=== PATIENT | male | born 1935 | race Caucasian/White ===

== ENCOUNTER 2016-12-07 10:42 | Emergency (ER) | payer OTHER ==
[~2016-12-07] VITALS: Ht 182.9 cm; Wt 113.6 kg
[~2016-12-07 10:42] MED LIST: 24HOUR ALLERGY10 MG PO; ACIDOPHILUS PO; ACIDOPHILUS1 EAC1 PO; ADULT LOW DOSE81 M1 PO; ALAVERT10 M1 PO; ALBUTEROL17 GM IH; ARIPIPRAZOLE20 MG PO; ARTIFICIAL TEAR15 M1 BOTH EYES; ASPIRIN81 M1 PO; ATROVENT 0.06%15 ML BOTH NARES; Aspirin E.C. PO; BACITRAYCIN PLU28 G1 TP; BACTRIM DS PO; BACTRIM,SEPT1 TABLET PO; CALCIUM 600 +1 EAC1 PO; CALCIUM 600 +1 EAC9 PO; CARRAKLENZ DER473 ML TP; CELEXA20 MG PO; CIPRO500 MG PO; CITALOPRAM HBR20 MG PO; CLONAZEPAM0.5 MG PO; COL-RITE100 M1 PO; COLACE100 MG PO; COMBIVENT200 INHALA IH; CRESTOR40 MG PO; Calcium 600 + Vit D PO; DIABETA,MICRONAS5 MG PO; DILANTIN100 MG PO; DIOVAN40 MG PO; DIOVAN80 MG PO; DUONEB 2.5-0.5 M3 ML AEROSOL; Ditropan PO; DuoNeb IH; FLOMAX0.4 MG PO; FLUNISOLIDE25 M2 NS; FUROSEMIDE20 MG PO; GAS-X80 MG PO; GLUCO BURST37.5 GM PO; GUAIFENESIN200 M1 PO; GUAIFENESIN200 M2 PO; HUMULIN N100 UNIT/1 SC; HUMULIN N300 UNIT/3 SC; IODOSORB TP; IODOSORB40 GM TP; IPRATROPIU0.2 MG/1 M IH; IPRATROPIUM BRO15 ML NS; ISOSORBIDE MONO30 MG PO; Kenalog 0.1% Cream TP; LANTUS 10100 UNITS/ SC; LASIX20 MG PO; LEVAQUIN500 MG PO; LIDOCAINE HCL20 ML MM; LIPITOR80 MG PO; LOPERAMIDE2 MG PO; LOPRESSOR25 MG PO; LOTRIMIN C1 APPLICAT TP; LOVASTATIN; LYRICA150 MG PO; LYRICA200 MG PO; LYRICA50 MG PO; Lasix PO; Lopressor PO; Lotrimin Cream TP; METOPROLOL TART50 MG PO; MIRALAX255 GM PO; Mylicon,Mylanta Gas, PO; NITROGLYCERIN0.4 MG SL; NITROSTAT0.4 MG SL; NOVOLOG 10100 UNITS/ SC; NOVOLOG PE100 UNITS/ SC; Nitrostat,NitroQuick SL; OXYBUTYNIN CHLOR5 MG PO; PERCOCET 5/31 TABLET PO; PLAVIX75 MG PO; PREDNISONE10 MG PO; PROAIR HFA8.5 GM IH; PROSCAR5 MG PO; PROTONIX40 MG PO; PROVENTIL,2.5 MG/3 M IH; PYRIDIUM100 MG PO; Plavix PO; Protonix PO; RESTASIS 01 DROP/0.4 BOTH EYES; SERTRALINE HCL100 MG PO; SYMBICORT60 INHALA1 IH; TYLENOL REGULA325 MG PO; VISTARIL25 MG PO; VITAMIN D31000 UNI1 PO; VITAMIN D31000 UNIT PO; Vitamin D PO; ZESTRIL,PRINIVI40 MG PO; [UNRECOGNIZED DRUG - CODE] IH; [UNRECOGNIZED DRUG - SUPPLY] TP; [UNRECOGNIZED DRUG - SUPPLY] TP; celeXA PO
[2016-12-07 11:56] LABS: HEMATOCRIT 39.7 % (38.0-50.0); MCH 23.9 PG (29.0-34.0); MCV 77.1 FL (86-99); MEAN PLAT.VOLUME 11.3 uM^3 (9.0-12.4); PLATELET COUNT 299 K/uL (156-360); RBC DIS.WIDTH-CV 17.7 % (11.8-14.6); RBC DIS.WIDTH-SD 48.3 % (39-53); RED BLOOD COUNT 5.15 M/uL (4.00-5.50); WHITE BLOOD COUNT 21.7 K/uL (4.1-10.2)
[2016-12-07 12:57] LABS: CHLORIDE 109 mEq/L (99-109); POTASSIUM 4.5 mEq/L (3.7-5.4); SODIUM 138 mEq/L (136-147)
[2016-12-07 12:59] LABS: GLUCOSE 178 mg/dL (70-99)
[2016-12-07 13:01] LABS: ANION GAP 8 MEQ/L (2-14); TOTAL BILIRUBIN 0.9 mg/dL (0.0-1.0)
[2016-12-07 13:03] LABS: ALKALINE PHOSPHATASE 68 IU/L (3-129); GFR ESTIMATE (CALCULATED) 48 mL/min/
[2016-12-07 13:04] LABS: UREA NITROGEN (BUN) 30 mg/dL (9-23)
[2016-12-07 16:26] LABS: INFLUENZA A VIRAL ANTIGEN NEGATIVE; INFLUENZA B VIRAL ANTIGEN NEGATIVE
[2016-12-07 16:50] LABS: ADD MIUA? NO; BILIRUBIN NEGATIVE; BLOOD NEGATIVE; COLOR YELLOW ((YELLOW)); GLUCOSE (STRIP) NEGATIVE; KETONES NEGATIVE; LEUKOCYTES NEGATIVE; NITRITE NEGATIVE; PROTEIN (STRIP) NEGATIVE; SPECIFIC GRAVITY 1.016 (1.000-1.030); UCUL ADDED? NO; UROBILINOGEN 0.2 MG/DL (0.2-1.0)
[2016-12-07] MEDS ORDERED: LEVAQUIN750 MG PO (16:57)
[2016-12-07 17:23] VITALS: BP 121/65
[2016-12-08] MEDS ORDERED: CHILDREN'S ASPI81 M1 PO (16:49)
[2016-12-08] MEDS ORDERED: ZOLOFT25 MG PO (16:50)
[2016-12-08] MEDS ORDERED: NOVOLOG 10100 UNITS/ SC (16:57)
[2016-12-08] MEDS ORDERED: CYMBALTA20 MG PO (16:59)
== END 2016-12-07 17:56 | disposition home or self-care (01) ==
LOC: EME 10:42
PROVIDERS: Emergency Medicine
DX: L08.9 Local infection of the skin and subcutaneous tissue, unspecified (principal); E11.8 Type 2 diabetes mellitus with unspecified complications; J44.9 Chronic obstructive pulmonary disease, unspecified; E78.5 Hyperlipidemia, unspecified; I10 Essential (primary) hypertension; I25.10 Atherosclerotic heart disease of native coronary artery without angina pectoris; I25.2 Old myocardial infarction; K21.9 Gastro-esophageal reflux disease without esophagitis; R56.9 Unspecified convulsions; Z86.73 Personal history of transient ischemic attack (TIA), and cerebral infarction without residual deficits; Z98.61 Coronary angioplasty status; Z87.891 Personal history of nicotine dependence
CPT/HCPCS: 71020; 71250; 74176; 80053; 81003; 83605; 85027; 87040; 87502; 99281; 99285; J7030

== ENCOUNTER 2016-12-08 12:30 | Observation (INO) | payer OTHER ==
[~2016-12-08] VITALS: Ht 182.9 cm; Wt 115.5 kg
[~2016-12-08 12:30] MED LIST changes: +LEVAQUIN750 MG PO
[2016-12-08 15:27] LABS: EOSINOPHIL (%) 1.8 % (0-5); EOSINOPHIL COUNT 0.1 K/uL (0-0.3); HEMATOCRIT 35.1 % (38.0-50.0); IMMATURE GRANULOCYTE (%) 0.5 % (0.0-0.7); INSTRUMENT ABS NEUTROPHIL CT 4.6 K/uL; MCH 23.6 PG (29.0-34.0); MCHC 30.2 G/DL (30.0-36.0); MCV 78.2 FL (86-99); MEAN PLAT.VOLUME 11.3 uM^3 (9.0-12.4); MONOCYTE (%) 14.8 % (3-12); MONOCYTE COUNT 1.2 K/uL (0-0.8); NEUTROPHIL (%) 57.4 % (45-76); NEUTROPHIL COUNT 4.6 K/uL (1.8-6.4); PLATELET COUNT 252 K/uL (156-360); RBC DIS.WIDTH-CV 17.7 % (11.8-14.6); RBC DIS.WIDTH-SD 49.9 % (39-53); RED BLOOD COUNT 4.49 M/uL (4.00-5.50)
[2016-12-08 15:33] LABS: CHLORIDE 110 mEq/L (99-109); POTASSIUM 4.2 mEq/L (3.7-5.4); SODIUM 140 mEq/L (136-147)
[2016-12-08 15:35] LABS: GLUCOSE 146 mg/dL (70-99)
[2016-12-08 15:36] LABS: ANION GAP 6 MEQ/L (2-14)
[2016-12-08 15:39] LABS: GFR ESTIMATE (CALCULATED) > 59 mL/min/
[2016-12-08 15:40] LABS: UREA NITROGEN (BUN) 23 mg/dL (9-23)
[2016-12-08] MEDS ORDERED: CHILDREN'S ASPI81 M1 PO (16:49)
[2016-12-08] MEDS ORDERED: ZOLOFT25 MG PO (16:50)
[2016-12-08] MEDS ORDERED: NOVOLOG 10100 UNITS/ SC (16:57)
[2016-12-08] MEDS ORDERED: CYMBALTA20 MG PO (16:59)
[2016-12-08 18:08] VITALS: BP 150/70
[2016-12-08 21:14] LABS: POINT-OF-CARE METER ID UU14188625
[2016-12-08 23:03] VITALS: BP 155/75
[2016-12-09 08:20] VITALS: BP 161/76
[2016-12-09 08:56] LABS: HEMATOCRIT 36.6 % (38.0-50.0); MCH 24.2 PG (29.0-34.0); MCHC 30.3 G/DL (30.0-36.0); MCV 79.9 FL (86-99); MEAN PLAT.VOLUME 12.7 uM^3 (9.0-12.4); PLATELET COUNT 197 K/uL (156-360); RBC DIS.WIDTH-CV 17.9 % (11.8-14.6); RBC DIS.WIDTH-SD 51.8 % (39-53); RED BLOOD COUNT 4.58 M/uL (4.00-5.50); WHITE BLOOD COUNT 8.1 K/uL (4.1-10.2)
[2016-12-09] MEDS ORDERED: LEVAQUIN500 MG PO (11:00)
== END 2016-12-09 14:03 | disposition home health service (06) ==
LOC: EME 12:30 → 5SOUTH 16:10 → EDOF 16:10 → 5SOUTH 16:10
PROVIDERS: Emergency Medicine; Internal Medicine
DX: L03.116 Cellulitis of left lower limb (principal); E11.40 Type 2 diabetes mellitus with diabetic neuropathy, unspecified; E11.21 Type 2 diabetes mellitus with diabetic nephropathy; E11.621 Type 2 diabetes mellitus with foot ulcer; L97.529 Non-pressure chronic ulcer of other part of left foot with unspecified severity; D50.9 Iron deficiency anemia, unspecified; K21.9 Gastro-esophageal reflux disease without esophagitis; I10 Essential (primary) hypertension; I25.10 Atherosclerotic heart disease of native coronary artery without angina pectoris; E78.5 Hyperlipidemia, unspecified; Z95.5 Presence of coronary angioplasty implant and graft; I25.2 Old myocardial infarction; G40.909 Epilepsy, unspecified, not intractable, without status epilepticus; N40.1 Benign prostatic hyperplasia with lower urinary tract symptoms; R33.9 Retention of urine, unspecified; F41.9 Anxiety disorder, unspecified; F32.9 Major depressive disorder, single episode, unspecified; Z85.46 Personal history of malignant neoplasm of prostate; Z86.73 Personal history of transient ischemic attack (TIA), and cerebral infarction without residual deficits; Z79.4 Long term (current) use of insulin
CPT/HCPCS: 80048; 82948; 85025; 85027; 87040; 87070; 87075; 87077; 87186; 87205; 93971; 94640; 94640 76; 99202; 99281; 99285; A6021; G0378; J1650; J1815; J1956; J3370

== ENCOUNTER 2017-01-11 13:00 | Observation (INO) | payer OTHER ==
[~2017-01-11] VITALS: Ht 182.9 cm; Wt 112.6 kg
[~2017-01-11 13:00] MED LIST changes: +CHILDREN'S ASPI81 M1 PO; +CYMBALTA20 MG PO; +ZOLOFT25 MG PO
[2017-01-11 14:39] LABS: MCH 23.7 PG (29.0-34.0); MCHC 30.5 G/DL (30.0-36.0); MCV 77.8 FL (86-99); MEAN PLAT.VOLUME 11.3 uM^3 (9.0-12.4); PLATELET COUNT 269 K/uL (156-360); RBC DIS.WIDTH-CV 16.8 % (11.8-14.6); RBC DIS.WIDTH-SD 47.3 % (39-53); RED BLOOD COUNT 5.14 M/uL (4.00-5.50); WHITE BLOOD COUNT 11.9 K/uL (4.1-10.2)
[2017-01-11 14:47] LABS: CHLORIDE 104 mEq/L (99-109); POTASSIUM 4.6 mEq/L (3.7-5.4); SODIUM 136 mEq/L (136-147)
[2017-01-11 14:49] LABS: GLUCOSE 64 mg/dL (70-99)
[2017-01-11 14:50] LABS: ANION GAP 8 MEQ/L (2-14)
[2017-01-11 14:53] LABS: GFR ESTIMATE (CALCULATED) 56 mL/min/; UREA NITROGEN (BUN) 21 mg/dL (9-23)
[2017-01-11 16:08] LABS: TROP-I INTERPRETATION NEGATIVE; TROPONIN-I < 0.01 ng/mL (0.0-0.30)
[2017-01-11 16:09] LABS: ADD MIUA? NO; BILIRUBIN NEGATIVE; BLOOD NEGATIVE; COLOR YELLOW ((YELLOW)); GLUCOSE (STRIP) NEGATIVE; KETONES NEGATIVE; LEUKOCYTES NEGATIVE; NITRITE NEGATIVE; PROTEIN (STRIP) NEGATIVE; SPECIFIC GRAVITY 1.012 (1.000-1.030); UCUL ADDED? NO; UROBILINOGEN 0.2 MG/DL (0.2-1.0)
[2017-01-11 18:07] VITALS: BP 168/92
[2017-01-11] MEDS ORDERED: ARIPIPRAZOLE20 MG PO (18:31)
[2017-01-11] MEDS ORDERED: ATORVASTATIN CA80 MG PO (18:32)
[2017-01-11] MEDS ORDERED: SYMBICORT60 INHALAT IH (18:32)
[2017-01-11] MEDS ORDERED: CYMBALTA60 MG PO (18:34)
[2017-01-11] MEDS ORDERED: RANEXA500 MG PO (18:38)
[2017-01-11] MEDS ORDERED: TRAMADOL HCL50 MG PO (18:38)
[2017-01-11] MEDS ORDERED: SIMETHICONE80 MG PO (18:38)
[2017-01-11] MEDS ORDERED: ALBUTEROL2.5 MG/3 M IH (18:39)
[2017-01-11 19:00] VITALS: BP 139/69
[2017-01-11 19:19] LABS: TROP-I INTERPRETATION NEGATIVE; TROPONIN-I 0.01 ng/mL (0.0-0.30)
[2017-01-11 23:09] LABS: POINT-OF-CARE METER ID UU13113831
[2017-01-12] VITALS: BP 152/68
[2017-01-12 00:47] LABS: METH RESISTANT S AUREUS PCR NEGATIVE (NEGATIVE)
[2017-01-12 00:54] LABS: PROBE CHECK PASS; SPECIMEN PROCESSING CONTROL PASS
[2017-01-12 04:25] VITALS: BP 139/82
[2017-01-12 06:29] LABS: HEMATOCRIT 36.5 % (38.0-50.0); MCH 24.3 PG (29.0-34.0); MCHC 31.2 G/DL (30.0-36.0); MCV 77.7 FL (86-99); MEAN PLAT.VOLUME 11.9 uM^3 (9.0-12.4); PLATELET COUNT 253 K/uL (156-360); RBC DIS.WIDTH-CV 17.1 % (11.8-14.6); RBC DIS.WIDTH-SD 47.6 % (39-53); WHITE BLOOD COUNT 8.9 K/uL (4.1-10.2)
[2017-01-12 06:53] LABS: ANION GAP 8 MEQ/L (2-14); CHLORIDE 103 MEQ/L (99-109); GFR ESTIMATE (CALCULATED) > 59 mL/min/; POTASSIUM 4.6 MEQ/L (3.7-5.4); SAMPLE HEMOLYSIS CHECK 0; SAMPLE ICTERIC CHECK 0; SAMPLE LIPEMIA CHECK 0; SODIUM 139 MEQ/L (136-147); UREA NITROGEN (BUN) 22 mg/dL (9-23)
[2017-01-12 06:54] LABS: GLUCOSE 129 mg/dL (70-99)
[2017-01-12 06:57] LABS: TROP-I INTERPRETATION NEGATIVE; TROPONIN-I < 0.01 ng/mL (0.0-0.30)
[2017-01-12 07:15] LABS: Estimated Average Glucose 163 mg/dL (70-123); HEMOGLOBIN A1c (GLYCOHEMOGLOB) 7.3 % HGB (Below 5.7)
[2017-01-12 07:58] VITALS: BP 147/75
[2017-01-12 08:07] LABS: POINT-OF-CARE METER ID UU13113700
[2017-01-12 12:08] VITALS: BP 128/66
[2017-01-12 12:53] LABS: POINT-OF-CARE METER ID UU13113700
== END 2017-01-12 16:56 | disposition home or self-care (01) ==
LOC: EME 13:00 → 5WEST 16:42 → EDOF 16:42 → 5WEST 17:53
PROVIDERS: Hospitalist; Internal Medicine; Physician Assistant Medical
DX: R07.9 Chest pain, unspecified (principal); J44.9 Chronic obstructive pulmonary disease, unspecified; I25.2 Old myocardial infarction; Z95.5 Presence of coronary angioplasty implant and graft; E78.5 Hyperlipidemia, unspecified; K21.9 Gastro-esophageal reflux disease without esophagitis; Z86.73 Personal history of transient ischemic attack (TIA), and cerebral infarction without residual deficits; Z95.0 Presence of cardiac pacemaker; Z79.4 Long term (current) use of insulin; Z79.02 Long term (current) use of antithrombotics/antiplatelets; Z79.82 Long term (current) use of aspirin; Z87.891 Personal history of nicotine dependence; I25.10 Atherosclerotic heart disease of native coronary artery without angina pectoris; E11.40 Type 2 diabetes mellitus with diabetic neuropathy, unspecified; E11.21 Type 2 diabetes mellitus with diabetic nephropathy; Z85.46 Personal history of malignant neoplasm of prostate; G40.909 Epilepsy, unspecified, not intractable, without status epilepticus; Z99.81 Dependence on supplemental oxygen; I11.9 Hypertensive heart disease without heart failure
CPT/HCPCS: 71020; 80048; 81003; 82948; 83036; 84484; 85027; 87641; 93005; 94640; 94640 76; 99202; 99281; 99285; G0378; G8978 GP CK; G8979 CJ; G8980 GP CK; G8987 CK; G8988 GO CJ; G8989 GO CK; J1644; J1815

== ENCOUNTER 2017-08-01 20:53 | Emergency (ER) | payer OTHER ==
[~2017-08-01] VITALS: Ht 188 cm; Wt 112.1 kg
[~2017-08-01 20:53] MED LIST changes: +ALBUTEROL2.5 MG/3 M IH; +ATORVASTATIN CA80 MG PO; +CYMBALTA60 MG PO; +RANEXA500 MG PO; +SIMETHICONE80 MG PO; +SYMBICORT60 INHALAT IH; +TRAMADOL HCL50 MG PO
[2017-08-02 02:28] VITALS: BP 135/97
== END 2017-08-02 02:29 | disposition home or self-care (01) ==
LOC: EME 20:53
DX: K59.00 Constipation, unspecified (principal); J44.9 Chronic obstructive pulmonary disease, unspecified; K21.9 Gastro-esophageal reflux disease without esophagitis; I10 Essential (primary) hypertension; E78.5 Hyperlipidemia, unspecified; Z85.118 Personal history of other malignant neoplasm of bronchus and lung; I25.2 Old myocardial infarction; F32.9 Major depressive disorder, single episode, unspecified; Z95.0 Presence of cardiac pacemaker; Z95.5 Presence of coronary angioplasty implant and graft; F41.9 Anxiety disorder, unspecified; Z86.73 Personal history of transient ischemic attack (TIA), and cerebral infarction without residual deficits; Z88.0 Allergy status to penicillin; Z88.8 Allergy status to other drugs, medicaments and biological substances; Z87.891 Personal history of nicotine dependence
CPT/HCPCS: 74018; 99281; 99284

== ENCOUNTER 2017-10-26 10:16 | Emergency (ER) | payer OTHER ==
[~2017-10-26] VITALS: Ht 182.9 cm; Wt 109.0 kg
[2017-10-26 11:59] VITALS: BP 141/77
== END 2017-10-26 11:59 | disposition home or self-care (01) ==
LOC: EME 10:16
DX: L84 Corns and callosities (principal); E11.9 Type 2 diabetes mellitus without complications; I10 Essential (primary) hypertension; J44.9 Chronic obstructive pulmonary disease, unspecified; K21.9 Gastro-esophageal reflux disease without esophagitis; E78.5 Hyperlipidemia, unspecified; I25.2 Old myocardial infarction; F41.9 Anxiety disorder, unspecified; F32.9 Major depressive disorder, single episode, unspecified; Z79.4 Long term (current) use of insulin; Z79.891 Long term (current) use of opiate analgesic; Z79.51 Long term (current) use of inhaled steroids; Z79.82 Long term (current) use of aspirin; Z87.891 Personal history of nicotine dependence; Z95.0 Presence of cardiac pacemaker; Z85.118 Personal history of other malignant neoplasm of bronchus and lung; Z86.73 Personal history of transient ischemic attack (TIA), and cerebral infarction without residual deficits; Z90.49 Acquired absence of other specified parts of digestive tract; Z95.5 Presence of coronary angioplasty implant and graft; Z88.0 Allergy status to penicillin; Z88.8 Allergy status to other drugs, medicaments and biological substances
CPT/HCPCS: 99281; 99284

== ENCOUNTER 2018-01-26 17:58 | Observation (INO) | payer OTHER ==
[~2018-01-26] VITALS: Ht 182.9 cm; Wt 109.4 kg
[~2018-01-26 17:58] MED LIST changes: +ARIPIPRAZOLE5 MG PO; +CYMBALTA30 MG PO; -CYMBALTA60 MG PO
[2018-01-26 18:53] LABS: HEMATOCRIT 42.2 % (38.0-50.0); MCH 29.5 PG (29.0-34.0); MCHC 33.2 G/DL (30.0-36.0); MCV 88.8 FL (86-99); PLATELET COUNT 225 K/uL (156-360); RBC DIS.WIDTH-CV 13.5 % (11.8-14.6); RBC DIS.WIDTH-SD 44.3 % (39-53); RED BLOOD COUNT 4.75 M/uL (4.00-5.50); WHITE BLOOD COUNT 10.7 K/uL (4.1-10.2)
[2018-01-26 19:09] LABS: ALBUMIN 3.2 g/dL (3.2-4.8); CHLORIDE 102 mEq/L (99-109); POTASSIUM 4.3 mEq/L (3.7-5.4); SODIUM 136 mEq/L (136-147)
[2018-01-26 19:11] LABS: GLUCOSE 192 mg/dL (70-99)
[2018-01-26 19:12] LABS: TOTAL PROTEIN 7.2 g/dL (6.4-8.3)
[2018-01-26 19:13] LABS: TOTAL BILIRUBIN 0.6 mg/dL (0.0-1.0)
[2018-01-26 19:15] LABS: ALKALINE PHOSPHATASE 92 IU/L (3-129); CREATININE 1.3 mg/dL (0.6-1.3); GFR ESTIMATE (CALCULATED) 56 mL/min/ (58.99-99999)
[2018-01-26 19:16] LABS: UREA NITROGEN (BUN) 20 mg/dL (9-23)
[2018-01-26 19:17] LABS: AST (GOT) 59 IU/L (2-34)
[2018-01-26 19:18] LABS: ALT (GPT) 43 IU/L (3-49); TROP-I INTERPRETATION NEGATIVE; TROPONIN-I 0.02 ng/mL (0.0-0.30)
[2018-01-26] MEDS ORDERED: FLONASE16 G1 BOTH NARES (20:12)
[2018-01-26 21:33] LABS: LIPASE 41 U/L (1.0-51.0)
[2018-01-26 23:15] VITALS: BP 128/65
[2018-01-27 02:16] LABS: TROP-I INTERPRETATION NEGATIVE; TROPONIN-I 0.01 ng/mL (0.0-0.30)
[2018-01-27 04:48] VITALS: BP 143/77
[2018-01-27 08:18] VITALS: BP 177/87
[2018-01-27 08:22] LABS: HEMATOCRIT 44.3 % (38.0-50.0); HEMOGLOBIN 14.3 G/DL (12.5-16.6); MCH 28.8 PG (29.0-34.0); MCHC 32.3 G/DL (30.0-36.0); MCV 89.1 FL (86-99); PLATELET COUNT 211 K/uL (156-360); RBC DIS.WIDTH-CV 13.8 % (11.8-14.6); RBC DIS.WIDTH-SD 44.4 % (39-53); RED BLOOD COUNT 4.97 M/uL (4.00-5.50)
[2018-01-27 08:34] LABS: TROP-I INTERPRETATION NEGATIVE; TROPONIN-I 0.02 ng/mL (0.0-0.30)
[2018-01-27 12:19] VITALS: BP 148/72
[2018-01-27 16:50] VITALS: BP 147/79
== END 2018-01-27 20:20 | disposition home or self-care (01) ==
LOC: EME 17:58 → EDOF 20:57 → ENRESERV 21:00 → 4SOUTH 22:56
PROVIDERS: Hospitalist; Physician Assistant
DX: R07.89 Other chest pain (principal); I25.10 Atherosclerotic heart disease of native coronary artery without angina pectoris; Z95.5 Presence of coronary angioplasty implant and graft; I49.5 Sick sinus syndrome; Z95.0 Presence of cardiac pacemaker; I11.9 Hypertensive heart disease without heart failure; E78.5 Hyperlipidemia, unspecified; E11.9 Type 2 diabetes mellitus without complications; Z86.73 Personal history of transient ischemic attack (TIA), and cerebral infarction without residual deficits; I27.20 Pulmonary hypertension, unspecified; I70.0 Atherosclerosis of aorta; E66.9 Obesity, unspecified; Z68.32 Body mass index [BMI] 32.0-32.9, adult; K21.9 Gastro-esophageal reflux disease without esophagitis; Z85.118 Personal history of other malignant neoplasm of bronchus and lung; Z85.46 Personal history of malignant neoplasm of prostate; Z92.21 Personal history of antineoplastic chemotherapy; J44.9 Chronic obstructive pulmonary disease, unspecified; F41.9 Anxiety disorder, unspecified; G40.909 Epilepsy, unspecified, not intractable, without status epilepticus; Z87.891 Personal history of nicotine dependence; R10.9 Unspecified abdominal pain; R33.9 Retention of urine, unspecified; E11.621 Type 2 diabetes mellitus with foot ulcer; L97.519 Non-pressure chronic ulcer of other part of right foot with unspecified severity; Z79.4 Long term (current) use of insulin; Z79.82 Long term (current) use of aspirin; Z82.3 Family history of stroke; Z88.0 Allergy status to penicillin; Z88.8 Allergy status to other drugs, medicaments and biological substances
CPT/HCPCS: 71046; 71275; 74177; 80053; 82948; 83690; 84484; 85027; 93005; 94640; 94640 76; 99202; 99281; 99285; G0378; J1644; J1815

== ENCOUNTER 2018-03-30 17:19 | Emergency (ER) | payer OTHER ==
[~2018-03-30] VITALS: Ht 182.9 cm; Wt 104.5 kg
[~2018-03-30 17:19] MED LIST changes: +FLONASE16 G1 BOTH NARES
[2018-03-30 18:20] LABS: BASOPHIL (%) 0.7 % (0-1); BASOPHIL COUNT 0.1 K/uL (0-0.1); EOSINOPHIL (%) 1.9 % (0-5); EOSINOPHIL COUNT 0.2 K/uL (0-0.3); HEMATOCRIT 41.5 % (38.0-50.0); HEMOGLOBIN 13.4 G/DL (12.5-16.6); IMMATURE GRANULOCYTE (%) 0.4 % (0.0-0.7); LYMPHOCYTE (%) 23.2 % (15-42); LYMPHOCYTE COUNT 2.3 K/uL (1.0-2.8); MCH 27.5 PG (29.0-34.0); MCHC 32.3 G/DL (30.0-36.0); MONOCYTE (%) 10.8 % (3-12); MONOCYTE COUNT 1.1 K/uL (0-0.8); NEUTROPHIL COUNT 6.3 K/uL (1.8-6.4); PLATELET COUNT 256 K/uL (156-360); RBC DIS.WIDTH-CV 13.9 % (11.8-14.6); RED BLOOD COUNT 4.88 M/uL (4.00-5.50); WHITE BLOOD COUNT 9.9 K/uL (4.1-10.2)
[2018-03-30 18:23] LABS: CHLORIDE 104 mEq/L (99-109); POTASSIUM 4.5 mEq/L (3.7-5.4); SODIUM 137 mEq/L (136-147)
[2018-03-30 18:24] LABS: GLUCOSE 131 mg/dL (70-99)
[2018-03-30 18:28] LABS: CREATININE 1.2 mg/dL (0.6-1.3); GFR ESTIMATE (CALCULATED) > 59 mL/min/ (58.99-99999)
[2018-03-30 18:29] LABS: UREA NITROGEN (BUN) 23 mg/dL (9-23)
[2018-03-30 20:31] LABS: APPEARANCE CLEAR ((CLEAR)); BILIRUBIN NEGATIVE; BLOOD NEGATIVE; COLOR YELLOW ((YELLOW)); GLUCOSE (STRIP) NEGATIVE; KETONES NEGATIVE; LEUKOCYTES NEGATIVE; NITRITE NEGATIVE; PROTEIN (STRIP) NEGATIVE; SPECIFIC GRAVITY 1.012 (1.000-1.030); UCUL ADDED? NO; UROBILINOGEN 0.2 MG/DL (0.2-1.0)
[2018-03-30 21:19] VITALS: BP 129/62
== END 2018-03-30 21:20 | disposition home or self-care (01) ==
LOC: EME 17:19
PROVIDERS: Emergency Medicine
DX: I95.9 Hypotension, unspecified (principal); E78.5 Hyperlipidemia, unspecified; J44.9 Chronic obstructive pulmonary disease, unspecified; K21.9 Gastro-esophageal reflux disease without esophagitis; I10 Essential (primary) hypertension; F32.9 Major depressive disorder, single episode, unspecified; F41.9 Anxiety disorder, unspecified; I25.2 Old myocardial infarction; Z95.5 Presence of coronary angioplasty implant and graft; Z95.0 Presence of cardiac pacemaker; Z86.73 Personal history of transient ischemic attack (TIA), and cerebral infarction without residual deficits; Z85.118 Personal history of other malignant neoplasm of bronchus and lung; Z87.891 Personal history of nicotine dependence; Z88.0 Allergy status to penicillin; Z88.8 Allergy status to other drugs, medicaments and biological substances
CPT/HCPCS: 80048; 81003; 85025; 93005; 94799; 99281; 99285